=== PATIENT | male | born 1930 | race Caucasian/White ===

== ENCOUNTER 2016-08-05 14:00 | Outpatient (RCR) ==
--- NOTE | 2016-07-27 16:16 | RS.OPPTEV2 ---
Date of Note: 07/26/16 Visit #: 1 Date of Evaluation: 07/26/16 Payer Source: MEDICARE Date of Onset/Injury/Change in Status: 05/09/16 Treatment Diagnosis: Gait abnormality, weakness, decreased functional ability History of Condition/Mechanism of Injury:: Patient diagnosed with Parkinson's disease 3-4 years ago. states he has progressively gotten less mobile. Level of Function: Patient needs assistance with all bed mobility, some transfers, showering/hygiene and getting dressed. Functional Limitations: Sleep, Self Care, ADL's, Reaching, Pushing, Pulling, Lifting, Carrying, Sitting, Standing, Bending, Squatting, Ambulation, Community Access/Integration Current Subjective/complaints:: Patient's states Mr. Patel has gotten progressively weak. She has to help him with bed mobility, some transfers, and most ADL's. States showering has become significantly difficult. She reports that he needs to go to the bathroom several times a night, but because he can't get out of bed by himself, she brings him a urinal. He is able to ambulate independently with a walker in the house and perform basic sit to stand transfers from a seat that is not too low. He has had no recent falls. He reports the right LE feels asleep at times. Reports not being able to move the right LE well. Mr. Patel reports decreased balance with standing and walking. Patient states he has back pain with attempts of bed mobility and some transfers. While sitting, he reports aching into the right hip and anterior thigh. Medical History Medical History Comments:: Parkinson's Disease, Pacemaker, Hernia repair X 2, right hand surgery. Smoking Status: Never smoker Hx Home Medications: Pradaxa, sinemet, zantac, metoprolol Patient's Goals: Patient and spouse's goals are to gain increased mobility and get relief of back and LE pain. Pain Assessment - Pain Description Pain Location: back and legs Pain Description: Aching Current Pain Intensity: does not rate Functional Outcome Measure Tinetti: 10 (03/05=64% impairment) - G Codes & Severity Modifier G Codes & Modifier: Mobility current CL. Mobility goal CJ Source of G Code score: Tinetti Assessment Observation - Observation Inspection: Patient presents to therapy via with assist of his . Posture: Forward Head, Rounded Shoulders, Increased Thoracic Kyphosis, Decreased Lumbar Lordosis Gait - Gait Pattern Gait Comments: Patient ambulatory in the department with a standard walker with CGA of one. Sit to stand and stand to sit transfers with minimal assistance of one. Patient does not place walker flat with all four legs touching the floor. Demonstrates a lack of continuity with steps. Recommended to patient and his that he use a rolling walker to conserve energy, allow for step continuity , and improved safety. His states they have a rollator at home. General Range of Motion: Patient demonstrates rigidity throughout bilateral LE's with ROM. Demonstrates limited hip extension and knee extension bilaterally. Both knees demonstrate to be -15 degrees from full extension. Bilateral ankle DF to neutral. Demonstrates tightness in anterior shoulder joints, exhibiting limited ROM into shoulder horizontal abduction. Muscle Strength: Bilateral hip strength 3+ to 4-/5. Bilateral quads and HS 4/ 5. Ankles 4/5. Trunk strength 3+/5. Sensation - Sensation Comments: Reports some hyposensitivity along the right anterior and lateral thigh. Otherwise, reports sensation is intact. Balance - Sitting Balance Static Sitting Balance: Good (-) Dynamic Sitting Balance: Fair (+) - Standing Balance Static Standing Balance: Fair Dynamic Standing Balance: Fair (-) Coordination - Tests Bilateral Heel to Bernal: Moderate Deviation Toe Tapping: Mild Deviation Additional Comments: Additional Comments: Bed mobility sit to supine with minimal to moderate assistance. Supine to sit with moderate assistance of one. Patient states his back really bothers him when trying to get out of bed. Interventions - Exercise/Activities/Manual Therapy Exercises/Activities: NA Manual Therapy: NA - Charges Total Direct Minutes: 55 mins Total Treatment Time: 55 mins Procedures billed for this date of service:: Eval Medium Assessment Assessment: Mr. Patel presents to therapy with a diagnosis of Parkinson's Disease, Osteoarthritis of the spine, and gait difficulty. He demonstrates marked limitation of spinal and LE mobility due to muscle tightness and progressive postural deviations. He exhibits the need for assistance with mobility for safety and his reports difficulty with all ADL's due to progressed weakness and limited mobility. He presents to be at a high risk for falls per Tinetti Assessment. Mr. Patel also reports discomfort in the back and legs. He demonstrates potential to benefit from exercises and activities to improve muscle flexibility, and also trunk and LE strengthening to improve his functional ability and safety. Patient Education: Education of diagnosis, Body/Joint mechanics, Home Exercise Program, Home Safety, Activity Modification, Education of Plan of Care Rehab Potential: Good Short Term Goals Goal #1: Patient and spouse independent in basic HEP. Goal to be met by: 08/17/16 Goal #2: Bilateral knee extension to -5 degrees. Goal to be met by: 08/17/16 Goal #3: Bilateral hip strength 4/5. Goal to be met by: 08/17/16 Goal #4: Pt to demonstrate good safety ambulating with AAD short distances. Goal to be met by: 08/17/16 [employer] Goals Goal #1: Pt able to perform transfers independently with good safety. Goal to be met by: 09/15/16 Goal #2: Pt to report minimal back and LE pain with bed mobility and transfers. Goal to be met by: 09/15/16 Goal #3: Score on Tinetti Assessment improved to 20/28. Goal to be met by: 09/15/16 Goal #4: Pt able to perform bed mobility with CGA of one at home. Goal to be met by: 09/15/16 Plan - Treatment to be Provided Procedures: Therapeutic Exercises, Therapeutic Activity, Gait Training, Neuromuscular Rehab, Patient Education Modalities: Electrical Stimulation, Hot Packs - Treatment Plan Frequency: 2 X week Duration: 6 weeks ORDER # VISITS AND/OR THROUGH DATE: 09/15/16 - Treatment Code (1) Gait abnormality Comments: R26.9 (2) Rigidity (muscles) Comments: R28.898 (3) Back pain Qualifiers: Back pain location: low back pain Chronicity: unspecified Back pain laterality: unspecified Sciatica presence: unspecified whether sciatica present Qualified Description: Low back pain, unspecified back pain laterality, unspecified chronicity, with sciatica presence unspecified Qualifier Code(s): (M54.5) Low back pain (4) Parkinson disease Comments: G20 (5) Degenerative arthritis of spine Qualifiers: Spinal region: lumbar Spinal osteoarthritis complication: unspecified spinal osteoarthritis Qualified Description: Osteoarthritis of lumbar spine , unspecified spinal osteoarthritis complication status Qualifier Code(s) : (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
--- NOTE | 2016-08-02 16:36 | RS.OPPTDN ---
Subjective Date of Note: 08/02/16 Visit #: 2 Date of Evaluation: 07/26/16 Payer Source: MEDICARE Treatment Diagnosis: Gait abnormality, weakness, decreased functional ability Current Subjective/complaints:: Patient's says he has been having seizures. Reports his MD knows and even though he has had them, they are less while taking the PD meds. She says she is trying to get him to walk more. Pain Assessment - Pain Description Pain Location: back and legs Pain Description: Aching Current Pain Intensity: does not rate - Treatment Modality: Electrical Stim Unattended Parameters/Method Applied: hivolt 4 large pads uncrossed @ 140 pk volts x 20 mins Treatment Area: bilateral lumbar paraspinals Patient Position: Sitting - Heat/Cryotherapy Treatment: Hot Pack Interventions - Exercise/Activities/Manual Therapy Exercises/Activities: Patient receives passive stretching of SKTC, HS, lower trunk rotation, and knee ext bilaterally x 4. Total minutes of Exercise: 16 Manual Therapy: NA - Charges Total Direct Minutes: 16 Total Treatment Time: 36 Procedures billed for this date of service:: hp, estim (un), ex Assessment: Patient demonstrates very tight HS, hip flexors and heel cords. He appeared to rico all well. Needs cues for sit to stand and stand to sit transfers for safety technique. Altered SW higher. Patient Education: Education of diagnosis, Body/Joint mechanics, Home Exercise Program, Home Safety, Activity Modification, Education of Plan of Care Short Term Goals Goal #1: Patient and spouse independent in basic HEP. Goal to be met by: 08/17/16 Progress towards Goal:: Progressing Goal #2: Bilateral knee extension to -5 degrees. Goal to be met by: 08/17/16 Goal #3: Bilateral hip strength 4/5. Goal to be met by: 08/17/16 Goal #4: Pt to demonstrate good safety ambulating with AAD short distances. Goal to be met by: 08/17/16 Clothing Room Supervisor Goals Goal #1: Pt able to perform transfers independently with good safety. Goal to be met by: 09/15/16 Goal #2: Pt to report minimal back and LE pain with bed mobility and transfers. Goal to be met by: 09/15/16 Goal #3: Score on Tinetti Assessment improved to 20/28. Goal to be met by: 09/15/16 Goal #4: Pt able to perform bed mobility with CGA of one at home. Goal to be met by: 09/15/16 Plan PLAN OF CARE EXPIRES ON:: 09/15/16 ORDER # VISITS AND/OR THROUGH DATE: 09/15/16 PLAN: Continue Plan of Care
--- NOTE | 2016-08-05 16:12 | RS.OPPTDN ---
Subjective Date of Note: 08/05/16 Visit #: 3 Date of Evaluation: 07/26/16 Payer Source: MEDICARE Treatment Diagnosis: Gait abnormality, weakness, decreased functional ability Current Subjective/complaints:: Patient says he thinks his last session helped. says that he had walked up and down their ramp today. Pain Assessment - Pain Description Pain Location: back and legs Pain Description: Aching Current Pain Intensity: does not rate - Treatment Modality: Electrical Stim Unattended Parameters/Method Applied: 4 large pads x 20 mins @ 170 pk volts [facility] Treatment Area: lumbar paraspinals Patient Position: Sitting - Heat/Cryotherapy Treatment: Hot Pack (mid to low back in sitting x 20 mins with estim) Interventions - Exercise/Activities/Manual Therapy Exercises/Activities: Patient receives passive stretching of SKTC, HS, lower trunk rotation, and knee ext bilaterally x 4. Patient performs: pillow squeezes , isometric hip flexion/abd, bridging, and marching in supine x 10 reps. Total minutes of Exercise: 20 Manual Therapy: NA - Charges Total Direct Minutes: 20 Total Treatment Time: 40 Procedures billed for this date of service:: hp, estim (un), ex Assessment: Patient admitted slight improvement in back pain following first session. He appears to rico all therex well. Tightness bilaterally with HS and heel cords. Altered SW again related to patient's posture and needed to be higher for comfort. Patient Education: Education of diagnosis, Body/Joint mechanics, Home Exercise Program, Home Safety, Activity Modification, Education of Plan of Care Short Term Goals Goal #1: Patient and spouse independent in basic HEP. Goal to be met by: 08/17/16 Progress towards Goal:: Progressing Goal #2: Bilateral knee extension to -5 degrees. Goal to be met by: 08/17/16 Goal #3: Bilateral hip strength 4/5. Goal to be met by: 08/17/16 Goal #4: Pt to demonstrate good safety ambulating with AAD short distances. Goal to be met by: 08/17/16 Job Press Feeder Goals Goal #1: Pt able to perform transfers independently with good safety. Goal to be met by: 09/15/16 Goal #2: Pt to report minimal back and LE pain with bed mobility and transfers. Goal to be met by: 09/15/16 Goal #3: Score on Tinetti Assessment improved to 20/28. Goal to be met by: 09/15/16 Goal #4: Pt able to perform bed mobility with CGA of one at home. Goal to be met by: 09/15/16 Plan PLAN OF CARE EXPIRES ON:: 09/15/16 ORDER # VISITS AND/OR THROUGH DATE: 09/15/16 PLAN: Progress Exercises
== END 2016-08-06 ==
PROVIDERS: ATTEND Family Medicine
DX: R26.9 Unspecified abnormalities of gait and mobility (principal); G20 Parkinson's disease; M47.9 Spondylosis, unspecified; M19.90 Unspecified osteoarthritis, unspecified site

== ENCOUNTER 2016-09-02 15:00 | Outpatient (RCR) ==
--- NOTE | 2016-08-09 16:07 | RS.OPPTDN ---
Subjective Date of Note: 08/09/16 Visit #: 4 Date of Evaluation: 07/26/16 Payer Source: MEDICARE Treatment Diagnosis: Gait abnormality, weakness, decreased functional ability Current Subjective/complaints:: Patient says he believes his back is a little better. Patient's and son have also commented about how much better he is "getting around." says she did not have to get up during the night the past few nights to help him with toileting. She usually gets up with him using the urinal 6 times per night. Now, she says it was only 3 times. Pain Assessment - Pain Description Pain Location: back and legs Current Pain Intensity: does not rate - Treatment Modality: Electrical Stim Unattended Parameters/Method Applied: hivolt 4 large pads uncrossed @ 185 pk volts x 20 mins bilateral lumbar paraspinals Patient Position: Sitting - Heat/Cryotherapy Treatment: Hot Pack Interventions - Exercise/Activities/Manual Therapy Exercises/Activities: Patient receives passive stretching of SKTC, HS, lower trunk rotation, and knee ext bilaterally x 4. Patient performs: pillow squeezes , isometric hip flexion/abd, bridging, and marching with 1 1/2# each leg in supine 2 x 10 reps. DF with red tband 2/10. Total minutes of Exercise: 25 Manual Therapy: NA - Charges Total Direct Minutes: 25 Total Treatment Time: 45 Procedures billed for this date of service:: hp, estim (un), ex2 Assessment: Patient appears to be responding to treatment as he is having less back pain and rico all increasing therex. I assisted patient and to the waiting room and stayed with him temporarily as he c/o being dizzy. Symptoms resolved and was able to walk to the car using SW. Patient Education: Education of diagnosis, Body/Joint mechanics, Home Exercise Program, Home Safety, Activity Modification, Education of Plan of Care Patient demonstrates compliance with HEP?: Yes Short Term Goals Goal #1: Patient and spouse independent in basic HEP. Goal to be met by: 08/17/16 Progress towards Goal:: Progressing Goal #2: Bilateral knee extension to -5 degrees. Goal to be met by: 08/17/16 Progress towards Goal:: Progressing Goal #3: Bilateral hip strength 4/5. Goal to be met by: 08/17/16 Progress towards Goal:: Progressing Goal #4: Pt to demonstrate good safety ambulating with AAD short distances. Goal to be met by: 08/17/16 Intermediate Goals Goal #1: Pt able to perform transfers independently with good safety. Goal to be met by: 09/15/16 Goal #2: Pt to report minimal back and LE pain with bed mobility and transfers. Goal to be met by: 09/15/16 Goal #3: Score on Tinetti Assessment improved to 20/28. Goal to be met by: 09/15/16 Goal #4: Pt able to perform bed mobility with CGA of one at home. Goal to be met by: 09/15/16 Plan PLAN OF CARE EXPIRES ON:: 09/15/16 ORDER # VISITS AND/OR THROUGH DATE: 09/15/16 PLAN: Progress Exercises
--- NOTE | 2016-08-12 15:49 | RS.OPPTDN ---
Subjective Date of Note: 08/12/16 Visit #: 5 Date of Evaluation: 07/26/16 Payer Source: MEDICARE Treatment Diagnosis: Gait abnormality, weakness, decreased functional ability Current Subjective/complaints:: Patient's says she can definitely tell therapy is helping because she is getting up less with him at night. She says she feels exercises are making an impact on his bladder. He usually has to get up to use his urinal 6+ times per night, but now only 3 times. He says he can stand up from the chair and bed better and says she sees him using better safety techniques with transfers. Pain Assessment - Pain Description Pain Location: back and legs Current Pain Intensity: "not bad" - Treatment Modality: Electrical Stim Unattended Parameters/Method Applied: hivolt 4 large pads @ 190 pk volts x 20 mins to the lumbar paraspinals Patient Position: Sitting - Heat/Cryotherapy Treatment: Hot Pack (mid to low back) Interventions - Exercise/Activities/Manual Therapy Exercises/Activities: Patient receives passive stretching of SKTC, HS, lower trunk rotation, and knee ext bilaterally x 4. Patient performs: pillow squeezes , isometric hip flexion/abd, bridging, and marching with 1 1/2# each leg in supine 2 x 10 reps. DF with red tband 2/10. Total minutes of Exercise: 26 Manual Therapy: NA - Charges Total Direct Minutes: 26 Total Treatment Time: 46 Procedures billed for this date of service:: hp, estim (un), ex2 Assessment: Patient demo improved safety techniques with sit to stand and stand to sit transfers without cues needed. Patient getting up less at night and decreased need to urinate, allowing him to sleep better. Patient's able to witness improvements in several areas. Perry has admitted decreased back pain as well. Patient Education: Education of diagnosis, Body/Joint mechanics, Home Exercise Program, Home Safety, Activity Modification, Education of Plan of Care Patient demonstrates compliance with HEP?: Yes Short Term Goals Goal #1: Patient and spouse independent in basic HEP. Goal to be met by: 08/17/16 Progress towards Goal:: Progressing Goal #2: Bilateral knee extension to -5 degrees. Goal to be met by: 08/17/16 Progress towards Goal:: Progressing Goal #3: Bilateral hip strength 4/5. Goal to be met by: 08/17/16 Progress towards Goal:: Progressing Goal #4: Pt to demonstrate good safety ambulating with AAD short distances. Goal to be met by: 08/17/16 Subsurface Augmentee Operator Goals Goal #1: Pt able to perform transfers independently with good safety. Goal to be met by: 09/15/16 Progress towards goal: Progressing Goal #2: Pt to report minimal back and LE pain with bed mobility and transfers. Goal to be met by: 09/15/16 Progress towards goal: Progressing Goal #3: Score on Tinetti Assessment improved to 20/28. Goal to be met by: 09/15/16 Goal #4: Pt able to perform bed mobility with CGA of one at home. Goal to be met by: 09/15/16 Plan PLAN OF CARE EXPIRES ON:: 09/15/16 ORDER # VISITS AND/OR THROUGH DATE: 09/15/16 PLAN: Progress Exercises
--- NOTE | 2016-08-18 16:22 | RS.OPPTDN ---
Subjective Date of Note: 08/18/16 Visit #: 6 Date of Evaluation: 07/26/16 Payer Source: MEDICARE Treatment Diagnosis: Gait abnormality, weakness, decreased functional ability Current Subjective/complaints:: Patient states he is feeling better. Reporting less back pain and says she can't believe the difference in waking up at night to urinate. She says she believes the exercises are reducing the frequency and is pleased. Pain Assessment - Pain Description Pain Location: back and legs Current Pain Intensity: "not bad" Does not rate - Treatment Modality: Electrical Stim Unattended Parameters/Method Applied: hivolt 4 large pads @ 240 pk volts uncrossed x 20 mins Treatment Area: lumbar paraspinals Patient Position: Sitting - Heat/Cryotherapy Treatment: Hot Pack (with estim) Interventions - Exercise/Activities/Manual Therapy Exercises/Activities: Patient receives passive stretching of SKTC, HS, lower trunk rotation, and knee ext bilaterally x 4. Patient performs: pillow squeezes , isometric hip flexion/abd, bridging, QS, and marching with 1 1/2# each leg in supine 2 x 10 reps. DF with red tband 2/10. Total minutes of Exercise: 26 Manual Therapy: NA - Charges Total Direct Minutes: 26 Total Treatment Time: 46 Procedures billed for this date of service:: hp, estim (un), ex2 Assessment: Patient's is very consistent with safety cues with amb/ transfers, and HEP using tbands. Patient getting up less at night and appears to have slightly more flexibility. Patient Education: Education of diagnosis, Body/Joint mechanics, Home Exercise Program, Home Safety, Activity Modification, Education of Plan of Care Patient demonstrates compliance with HEP?: Yes Short Term Goals Goal #1: Patient and spouse independent in basic HEP. Goal to be met by: 08/17/16 Progress towards Goal:: Progressing Goal #2: Bilateral knee extension to -5 degrees. Goal to be met by: 08/17/16 Progress towards Goal:: Progressing Goal #3: Bilateral hip strength 4/5. Goal to be met by: 08/17/16 Progress towards Goal:: Progressing Goal #4: Pt to demonstrate good safety ambulating with AAD short distances. Goal to be met by: 08/17/16 [employer]agerie Superintendent Goals Goal #1: Pt able to perform transfers independently with good safety. Goal to be met by: 09/15/16 Progress towards goal: Progressing Goal #2: Pt to report minimal back and LE pain with bed mobility and transfers. Goal to be met by: 09/15/16 Progress towards goal: Progressing Goal #3: Score on Tinetti Assessment improved to 20/28. Goal to be met by: 09/15/16 Goal #4: Pt able to perform bed mobility with CGA of one at home. Goal to be met by: 09/15/16 Plan PLAN OF CARE EXPIRES ON:: 09/15/16 ORDER # VISITS AND/OR THROUGH DATE: 09/15/16 PLAN: Progress Exercises
--- NOTE | 2016-08-20 16:26 | RS.OPPTDN ---
Subjective Date of Note: 08/20/16 Visit #: 7 Date of Evaluation: 07/26/16 Payer Source: MEDICARE Treatment Diagnosis: Gait abnormality, weakness, decreased functional ability Current Subjective/complaints:: Patient says his back pain is much better. Reports he barely has it anymore, but when it is present, it is equal to both sides of the lower back (at waistline). Pain Assessment - Pain Description Pain Location: back and legs Current Pain Intensity: "just a little" - Treatment Modality: Electrical Stim Unattended Parameters/Method Applied: hivolt 4 large pads @ 170 pk volts x 20 mins to bilateral lumbar paraspinals uncrossed. Patient Position: Sitting - Heat/Cryotherapy Treatment: Hot Pack Interventions - Exercise/Activities/Manual Therapy Exercises/Activities: Patient receives passive stretching of SKTC, HS, lower trunk rotation, and knee ext bilaterally x 4. Patient performs: pillow squeezes , isometric hip flexion/abd, bridging, QS, and marching with 1 1/2# each leg in supine 2 x 10 reps. SAQ 2 1/2# alternating, DF with red tband 2/10. LAQ and alternate DF. Shoulder shrugs and scap adduction (assisted x 10) Total minutes of Exercise: 26 Manual Therapy: NA - Charges Total Direct Minutes: 26 Total Treatment Time: 46 Procedures billed for this date of service:: hp, estim (un), ex2 Assessment: Patient recalling less pain to the LB and less frequent. Patient appears to ambulate with increased speed, but remains with shuffling and short steps. Patient Education: Education of diagnosis, Body/Joint mechanics, Home Exercise Program, Home Safety, Activity Modification, Education of Plan of Care Patient demonstrates compliance with HEP?: Yes Short Term Goals Goal #1: Patient and spouse independent in basic HEP. Goal to be met by: 08/17/16 Progress towards Goal:: Progressing Goal #2: Bilateral knee extension to -5 degrees. Goal to be met by: 08/17/16 Progress towards Goal:: Progressing Goal #3: Bilateral hip strength 4/5. Goal to be met by: 08/17/16 Progress towards Goal:: Progressing Goal #4: Pt to demonstrate good safety ambulating with AAD short distances. Goal to be met by: 08/17/16 Finish Molder Goals Goal #1: Pt able to perform transfers independently with good safety. Goal to be met by: 09/15/16 Progress towards goal: Progressing Goal #2: Pt to report minimal back and LE pain with bed mobility and transfers. Goal to be met by: 09/15/16 Progress towards goal: Progressing Goal #3: Score on Tinetti Assessment improved to 20/28. Goal to be met by: 09/15/16 Goal #4: Pt able to perform bed mobility with CGA of one at home. Goal to be met by: 09/15/16 Plan PLAN OF CARE EXPIRES ON:: 09/15/16 ORDER # VISITS AND/OR THROUGH DATE: 09/15/16 PLAN: Progress Exercises
--- NOTE | 2016-08-26 15:43 | RS.OPPTDN ---
Subjective Date of Note: 08/23/16 Visit #: 7 Date of Evaluation: 07/26/16 Payer Source: MEDICARE Treatment Diagnosis: Gait abnormality, weakness, decreased functional ability Current Subjective/complaints:: Patient says he is doing better and back pain is low, but is fatigued. Pain Assessment - Pain Description Pain Location: back and legs Current Pain Intensity: "just a little" - Treatment Modality: Electrical Stim Unattended Parameters/Method Applied: 4 large pads @ 220 pk volts x 20 mins Treatment Area: bilateral lumbar paraspinals Patient Position: Sitting - Heat/Cryotherapy Treatment: Hot Pack Interventions - Exercise/Activities/Manual Therapy Exercises/Activities: Patient receives passive stretching of SKTC, HS, lower trunk rotation, and knee ext bilaterally x 4. Patient performs: pillow squeezes , isometric hip flexion/abd, bridging, QS, and marching with 1 1/2# each leg in supine 2 x 10 reps. SAQ 2 1/2# alternating, DF with red tband 2/10. LAQ and alternate DF. Shoulder shrugs and scap adduction (assisted x 10) Total minutes of Exercise: 27 Manual Therapy: NA - Charges Total Direct Minutes: 27 Total Treatment Time: 47 Procedures billed for this date of service:: hp, estim (un), ex2 Patient Education: Education of diagnosis, Body/Joint mechanics, Home Exercise Program, Home Safety, Activity Modification, Education of Plan of Care Patient demonstrates compliance with HEP?: Yes Short Term Goals Goal #1: Patient and spouse independent in basic HEP. Goal to be met by: 08/17/16 Progress towards Goal:: Progressing Goal #2: Bilateral knee extension to -5 degrees. Goal to be met by: 08/17/16 Progress towards Goal:: Progressing Goal #3: Bilateral hip strength 4/5. Goal to be met by: 08/17/16 Progress towards Goal:: Progressing Goal #4: Pt to demonstrate good safety ambulating with AAD short distances. Goal to be met by: 08/17/16 Retirement Goals Goal #1: Pt able to perform transfers independently with good safety. Goal to be met by: 09/15/16 Progress towards goal: Progressing Goal #2: Pt to report minimal back and LE pain with bed mobility and transfers. Goal to be met by: 09/15/16 Progress towards goal: Progressing Goal #3: Score on Tinetti Assessment improved to 20/28. Goal to be met by: 09/15/16 Goal #4: Pt able to perform bed mobility with CGA of one at home. Goal to be met by: 09/15/16 Plan PLAN OF CARE EXPIRES ON:: 09/15/16 ORDER # VISITS AND/OR THROUGH DATE: 09/15/16 PLAN: Progress Exercises
--- NOTE | 2016-08-26 16:29 | RS.OPPTDN ---
Subjective Date of Note: 08/26/16 Visit #: 8 Date of Evaluation: 07/26/16 Payer Source: MEDICARE Treatment Diagnosis: Gait abnormality, weakness, decreased functional ability Current Subjective/complaints:: Patient expresses he's very tired today. says they have had many MD appts this and last week. Pain Assessment - Pain Description Pain Location: back and legs Current Pain Intensity: "just a little" - Treatment Modality: Electrical Stim Unattended Parameters/Method Applied: hivolt 4 large pads @ 180-220 pk volts x 20 mins Treatment Area: bilateral lumbar paraspinals Patient Position: Sitting - Heat/Cryotherapy Treatment: Hot Pack Interventions - Exercise/Activities/Manual Therapy Exercises/Activities: Patient receives passive stretching of SKTC, HS, lower trunk rotation, and knee ext bilaterally x 4. Patient also receives passive hip flexor stretching in sidelying x 2. Less active therex due to patient fatigue. Total minutes of Exercise: 17 Manual Therapy: NA - Charges Total Direct Minutes: 17 Total Treatment Time: 37 Procedures billed for this date of service:: hp, estim (un), ex Assessment: Patient verbalizes fatigue today related to several MD appts this past two weeks. He is able to rico stretches well, but shows very little range with stretch to R hip flexor. Patient is performing HEP consistently and ambulates out of the department with more erect gait and increased speed with SW. Less safety cues needed as he is showing more initiative with transfers. Patient Education: Education of diagnosis, Body/Joint mechanics, Home Exercise Program, Home Safety, Activity Modification, Education of Plan of Care Patient demonstrates compliance with HEP?: Yes Short Term Goals Goal #1: Patient and spouse independent in basic HEP. Goal to be met by: 08/17/16 Progress towards Goal:: Progressing Goal #2: Bilateral knee extension to -5 degrees. Goal to be met by: 08/17/16 Progress towards Goal:: Progressing Goal #3: Bilateral hip strength 4/5. Goal to be met by: 08/17/16 Progress towards Goal:: Progressing Goal #4: Pt to demonstrate good safety ambulating with AAD short distances. Goal to be met by: 08/17/16 Residential Goals Goal #1: Pt able to perform transfers independently with good safety. Goal to be met by: 09/15/16 Progress towards goal: Progressing Goal #2: Pt to report minimal back and LE pain with bed mobility and transfers. Goal to be met by: 09/15/16 Progress towards goal: Progressing Goal #3: Score on Tinetti Assessment improved to 20/28. Goal to be met by: 09/15/16 Goal #4: Pt able to perform bed mobility with CGA of one at home. Goal to be met by: 09/15/16 Plan PLAN OF CARE EXPIRES ON:: 09/15/16 ORDER # VISITS AND/OR THROUGH DATE: 09/15/16 PLAN: Progress Exercises (continue bilateral hip flexor stretching next week)
--- NOTE | 2016-08-31 08:56 | RS.OPPTDN ---
Subjective Date of Note: 08/30/16 Visit #: 9 Date of Evaluation: 07/26/16 Payer Source: MEDICARE Treatment Diagnosis: Gait abnormality, weakness, decreased functional ability Current Subjective/complaints:: Patient pleased with his progress,feels the therapy is helping.His is present and reports that his walking has improved. Pain Assessment - Pain Description Pain Location: back and legs Pain Description: Dull Current Pain Intensity: not rated - Treatment Modality: Electrical Stim Unattended Parameters/Method Applied: 20 mins. high volt to lumbar paraspinals,2 large electrodes @ 190 pv. Patient Position: Sitting - Heat/Cryotherapy Treatment: Hot Pack (concurrent with e-stim) Interventions - Exercise/Activities/Manual Therapy Exercises/Activities: 30 mins. total of trunk rotation in hooklying,passive stretching to hamstrings.AROM of alternating SAQ's,alternating heelslides, alternating hip flexion,3/10 each. Total minutes of Exercise: 30 Manual Therapy: NA Total minutes of Manual Therapy: 0 - Charges Total Direct Minutes: 30 Total Treatment Time: 50 Procedures billed for this date of service:: hp,e-stim,ex 2 Assessment: Patient tolerates exercises well,no increased back pain with AROM today.He has decreased trunk rotation with ambulation noted.He requires occasional cues to place the walker flat on floor while ambulating . Patient Education: Education of diagnosis, Body/Joint mechanics, Home Exercise Program, Home Safety, Activity Modification, Education of Plan of Care Short Term Goals Goal #1: Patient and spouse independent in basic HEP. Goal to be met by: 08/17/16 Progress towards Goal:: Progressing Goal #2: Bilateral knee extension to -5 degrees. Goal to be met by: 08/17/16 Progress towards Goal:: Progressing Goal #3: Bilateral hip strength 4/5. Goal to be met by: 08/17/16 Progress towards Goal:: Progressing Goal #4: Pt to demonstrate good safety ambulating with AAD short distances. Goal to be met by: 08/17/16 Half-Way Goals Goal #1: Pt able to perform transfers independently with good safety. Goal to be met by: 09/15/16 Progress towards goal: Progressing Goal #2: Pt to report minimal back and LE pain with bed mobility and transfers. Goal to be met by: 09/15/16 Progress towards goal: Progressing Goal #3: Score on Tinetti Assessment improved to 20/28. Goal to be met by: 09/15/16 Goal #4: Pt able to perform bed mobility with CGA of one at home. Goal to be met by: 09/15/16 Plan PLAN OF CARE EXPIRES ON:: 09/15/16 ORDER # VISITS AND/OR THROUGH DATE: 09/15/16 PLAN: Continue Plan of Care
--- NOTE | 2016-09-06 15:29 | RS.OPPTDN ---
Subjective Date of Note: 09/02/16 Visit #: 10 Date of Evaluation: 07/26/16 Payer Source: MEDICARE Treatment Diagnosis: Gait abnormality, weakness, decreased functional ability Current Subjective/complaints:: Patient feels the therapy is helping ,was able to mow his lawn. Pain Assessment - Pain Description Pain Location: back and legs Pain Description: Dull Current Pain Intensity: not rated - Treatment Modality: Electrical Stim Unattended Parameters/Method Applied: 20 mins. high volt,2 large electrodes to lumbar paraspinals,@180 pv. Patient Position: Sitting - Heat/Cryotherapy Treatment: Hot Pack (concurrent with e-stim) Interventions - Exercise/Activities/Manual Therapy Exercises/Activities: 40 mins. Tinetti assessment and Oswestry low back assessment ,HEP review. Total minutes of Exercise: 40 Manual Therapy: NA Total minutes of Manual Therapy: 0 - Charges Total Direct Minutes: 40 Total Treatment Time: 60 Procedures billed for this date of service:: hp,e-stim,ex 2 Assessment: Progressing ,steadier sit to stand,improved gait pattern,improved trunk extension,improved awareness of safety and energy conservation.He can continue to benefit from skilled PT as he is highly motivated to improve. Patient Education: Education of diagnosis, Body/Joint mechanics, Home Exercise Program, Home Safety, Activity Modification, Education of Plan of Care Patient demonstrates compliance with HEP?: Yes Short Term Goals Goal #1: Patient and spouse independent in basic HEP. Goal to be met by: 08/17/16 Progress towards Goal:: Progressing Goal #2: Bilateral knee extension to -5 degrees. Goal to be met by: 08/17/16 Progress towards Goal:: Progressing Goal #3: Bilateral hip strength 4/5. Goal to be met by: 08/17/16 Progress towards Goal:: Progressing Goal #4: Pt to demonstrate good safety ambulating with AAD short distances. Goal to be met by: 08/17/16 Skilled Nursing Goals Goal #1: Pt able to perform transfers independently with good safety. Goal to be met by: 09/15/16 Progress towards goal: Partially Met Goal #2: Pt to report minimal back and LE pain with bed mobility and transfers. Goal to be met by: 09/15/16 Progress towards goal: Progressing Goal #3: Score on Tinetti Assessment improved to . Goal to be met by: 09/15/16 () Progress towards goal: Met Goal #4: Pt able to perform bed mobility with CGA of one at home. Goal to be met by: 09/15/16 Progress towards goal: Progressing Plan PLAN OF CARE EXPIRES ON:: 09/15/16 ORDER # VISITS AND/OR THROUGH DATE: 09/15/16 PLAN: Continue Plan of Care
--- NOTE | 2016-09-22 15:56 | RS.PTSUM ---
Progress Note/Summary Date of Note: 09/03/16 Date of Evaluation: 07/26/16 Number of Visits: 10 Reporting Period for this Progress Note: 08/30/16 through 07/26/16 Current Complaints/Gains: Patient and his are pleased with his progress. States he is walking better and he feels stronger. Objective Measurements/Presentation: Patient demonstrates more erect posture with ambulation and equal step length. He exhibits improved safety awareness and also has gained muscle strength. G Codes: Mobility current CJ. Mobility goal CJ Source of G Code Score: Tinetti Assessment - Short Term Goals Goal #1: Patient and spouse independent in basic HEP. Goal to be met by: 09/06/16 Progress towards Goal:: Progressing Goal #2: Bilateral knee extension to -5 degrees. Goal to be met by: 09/06/16 Progress towards Goal:: Progressing Goal #3: Bilateral hip strength 4/5. Goal to be met by: 09/06/16 Progress towards Goal:: Progressing Goal #4: Pt to demonstrate good safety ambulating with AAD short distances. Goal to be met by: 09/06/16 Progress towards Goal:: Progressing - [employer] Goals Goal #1: Pt able to perform transfers independently with good safety. Goal to be met by: 09/15/16 Progress towards goal: Partially Met Goal #2: Pt to report minimal back and LE pain with bed mobility and transfers. Goal to be met by: 10/06/16 Progress towards goal: Progressing Goal #3: Score on Tinetti Assessment improved to . Goal to be met by: 09/15/16 () Progress towards goal: Met Goal #4: Pt able to perform bed mobility with CGA of one at home. Goal to be met by: 10/06/16 - Assessment Assessment of Improvement/Progress: Mr. Patel has made progress with improved safety and decreased risk for falls per Tinetti Assessment. He demonstrates the potential for increased safety with mobility and increased independence with further therapy of strengthening . - Plan Plan: Continue Plan of Care PLAN OF CARE EXPIRES ON:: 10/06/16 ORDER # VISITS AND/OR THROUGH DATE: 10/06/16
== END 2016-09-05 ==
PROVIDERS: ATTEND Family Medicine
DX: G20 Parkinson's disease (principal); M47.9 Spondylosis, unspecified; M19.90 Unspecified osteoarthritis, unspecified site; R26.9 Unspecified abnormalities of gait and mobility

== ENCOUNTER 2016-09-23 15:00 | Outpatient (RCR) ==
--- NOTE | 2016-09-06 16:38 | RS.OPPTDN ---
Subjective Date of Note: 09/06/16 Visit #: 11 Date of Evaluation: 07/26/16 Payer Source: MEDICARE Treatment Diagnosis: Gait abnormality, weakness, decreased functional ability Current Subjective/complaints:: Patient says he was able to mow on his ride mower last week without difficulty. He says that his back felt better afterwards. His says he only awakened twice last week and 3 times over the weekend to use the bathroom. Pain Assessment - Pain Description Pain Location: back and legs Current Pain Intensity: not rated - Treatment Modality: Electrical Stim Unattended Parameters/Method Applied: hivolt 4 large pads uncrossed @ 205 pk volts x 20 mins Treatment Area: bilateral lumbar paraspinals Patient Position: Sitting - Heat/Cryotherapy Treatment: Hot Pack Interventions - Exercise/Activities/Manual Therapy Exercises/Activities: Patient continued to receive passive stretching of SKTC, HS, Piriformis, and lower trunk rotation bilaterally x 3. Patient performs: SAQ 2 1/2#ea, DF and hooklying hip abd with green tband, alternate LE lift with 2 1/2# ea. Bridging x 3. All others 2x10. Received passive hip flexion stretching bilaterally x 3. 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 Slight improvement with flexibility during stretches. Patient Education: Education of diagnosis, Body/Joint mechanics, Home Exercise Program, Home Safety, Activity Modification, Education of Plan of Care Patient demonstrates compliance with HEP?: Yes Short Term Goals Goal #1: Patient and spouse independent in basic HEP. Goal to be met by: 08/17/16 Progress towards Goal:: Met Goal #2: Bilateral knee extension to -5 degrees. Goal to be met by: 08/17/16 Progress towards Goal:: Progressing Goal #3: Bilateral hip strength 4/5. Goal to be met by: 08/17/16 Progress towards Goal:: Met Goal #4: Pt to demonstrate good safety ambulating with AAD short distances. Goal to be met by: 08/17/16 Progress towards Goal:: Progressing Security Advisor Goals Goal #1: Pt able to perform transfers independently with good safety. Goal to be met by: 09/15/16 Progress towards goal: Partially Met Goal #2: Pt to report minimal back and LE pain with bed mobility and transfers. Goal to be met by: 09/15/16 Progress towards goal: Progressing Goal #3: Score on Tinetti Assessment improved to . Goal to be met by: 09/15/16 () Progress towards goal: Met Goal #4: Pt able to perform bed mobility with CGA of one at home. Goal to be met by: 09/15/16 Plan PLAN OF CARE EXPIRES ON:: 09/15/16 ORDER # VISITS AND/OR THROUGH DATE: 09/15/16 PLAN: Progress Exercises
--- NOTE | 2016-09-09 16:40 | RS.OPPTDN ---
Subjective Date of Note: 09/09/16 Visit #: 13 Date of Evaluation: 07/26/16 Payer Source: MEDICARE Treatment Diagnosis: Gait abnormality, weakness, decreased functional ability Current Subjective/complaints:: Patient says his back pain is elevated due to the weather, but has been only awakening 3 times per night for the past 4 days. He says he was able to mow again yesterday with no c/o's. His says she is very pleased at this point, but would like to continue for about 2 more weeks. Pain Assessment - Pain Description Pain Location: back and legs Current Pain Intensity: more today related to the weather - Treatment Modality: Electrical Stim Unattended Parameters/Method Applied: hivolt 4 large pads to the mid to low back @ 205 pk volts x 20 mins Patient Position: Sitting - Heat/Cryotherapy Treatment: Hot Pack (mid to low back with estim) Interventions - Exercise/Activities/Manual Therapy Exercises/Activities: Patient continued to receive passive stretching of SKTC, HS, Piriformis, and lower trunk rotation bilaterally x 3. Patient performs: SAQ progressed to 3#ea, DF and hooklying hip abd with green tband, alternate LE lift with 2 1/2# ea. Bridging 2x5. All others 2x10. Received passive hip flexion stretching bilaterally x 3. Sitting: shoulder shrugs and scap adduction. VC's with gait for more erect posture and to avoid looking down at feet. Total minutes of Exercise: 26 Manual Therapy: NA - Charges Total Direct Minutes: 26 Total Treatment Time: 46 Procedures billed for this date of service:: hp, estim (un), ex2 Assessment: Elevated back soreness today related to the damp weather. Patient has now been able to mow 3 times without c/o's. He also has consistently awakened less to use the bathroom the past 4 days. Patient to continue x 2-3 more weeks with new order. Patient Education: Education of diagnosis, Body/Joint mechanics, Home Exercise Program, Home Safety, Activity Modification, Education of Plan of Care Patient demonstrates compliance with HEP?: Yes Short Term Goals Goal #1: Patient and spouse independent in basic HEP. Goal to be met by: 08/17/16 Progress towards Goal:: Met Goal #2: Bilateral knee extension to -5 degrees. Goal to be met by: 08/17/16 Progress towards Goal:: Progressing Goal #3: Bilateral hip strength /5. Goal to be met by: 08/17/16 Progress towards Goal:: Met Goal #4: Pt to demonstrate good safety ambulating with AAD short distances. Goal to be met by: 08/17/16 Progress towards Goal:: Met Balance Engineer Goals Goal #1: Pt able to perform transfers independently with good safety. Goal to be met by: 09/15/16 Progress towards goal: Partially Met Goal #2: Pt to report minimal back and LE pain with bed mobility and transfers. Goal to be met by: 09/15/16 Progress towards goal: Progressing Goal #3: Score on Tinetti Assessment improved to . Goal to be met by: 09/15/16 () Progress towards goal: Met Goal #4: Pt able to perform bed mobility with CGA of one at home. Goal to be met by: 09/15/16 Plan PLAN OF CARE EXPIRES ON:: 09/15/16 ORDER # VISITS AND/OR THROUGH DATE: 09/15/16 PLAN: Progress Exercises (continue x 2-3 more weeks)
--- NOTE | 2016-09-13 16:42 | RS.OPPTDN ---
Subjective Date of Note: 09/13/16 Visit #: 14 Date of Evaluation: 07/26/16 Payer Source: MEDICARE Treatment Diagnosis: Gait abnormality, weakness, decreased functional ability Current Subjective/complaints:: Patient's says Mr. Patel mowed Tuesday and was pretty worn out. She says he is able to get on/off his mower much better than prior to PT. Says he has been getting up only 2 times per night now. Pain Assessment - Pain Description Pain Location: back and legs Current Pain Intensity: more today related to the weather - Treatment Modality: Electrical Stim Unattended Parameters/Method Applied: hivolt 4 large pads @ 215-220 pk volts uncrossed x 20 mins bilateral lumbar paraspinals Patient Position: Sitting - Heat/Cryotherapy Treatment: Hot Pack Interventions - Exercise/Activities/Manual Therapy Exercises/Activities: Patient continued to receive passive stretching of Heel cords HS, Piriformis, and lower trunk rotation bilaterally x 3. Bilateral Hip flexor stretching x 3. Patient performs: SAQ progressed to 3#ea, DF and hooklying hip abd with green tband, Bridging 2x5. All others 2x10. Practiced bed mobs supine to sit, sidelying and sit to supine. Sitting: shoulder shrugs and scap adduction. VC's with gait for more erect posture and to avoid looking down at feet. Total minutes of Exercise: 40 Manual Therapy: NA - Charges Total Direct Minutes: 40 Total Treatment Time: 60 Procedures billed for this date of service:: hp, estim (un), ex3 Assessment: Patient demo progress with awakening to only 2 times per night now. Ambulating with larger steps and increased speed upon departing PT. Verbal reports of decreased back pain and improved ability to ambulate out of our department. Patient Education: Education of diagnosis, Body/Joint mechanics, Home Exercise Program, Home Safety, Activity Modification, Education of Plan of Care Patient demonstrates compliance with HEP?: Yes Short Term Goals Goal #1: Patient and spouse independent in basic HEP. Goal to be met by: 08/17/16 Progress towards Goal:: Met Goal #2: Bilateral knee extension to -5 degrees. Goal to be met by: 08/17/16 Progress towards Goal:: Progressing Goal #3: Bilateral hip strength 4/5. Goal to be met by: 08/17/16 Progress towards Goal:: Met Goal #4: Pt to demonstrate good safety ambulating with AAD short distances. Goal to be met by: 08/17/16 Progress towards Goal:: Met Director Physical Therapy Goals Goal #1: Pt able to perform transfers independently with good safety. Goal to be met by: 09/15/16 Progress towards goal: Partially Met Goal #2: Pt to report minimal back and LE pain with bed mobility and transfers. Goal to be met by: 09/15/16 Progress towards goal: Progressing Goal #3: Score on Tinetti Assessment improved to . Goal to be met by: 09/15/16 () Progress towards goal: Met Goal #4: Pt able to perform bed mobility with CGA of one at home. Goal to be met by: 09/15/16 Plan PLAN OF CARE EXPIRES ON:: 09/30/16 ORDER # VISITS AND/OR THROUGH DATE: 09/30/16, with new order x 2-3 times per week PLAN: Progress Exercises
--- NOTE | 2016-09-15 16:57 | RS.OPPTDN ---
Subjective Date of Note: 09/15/16 Visit #: 15 Date of Evaluation: 07/26/16 Payer Source: MEDICARE Treatment Diagnosis: Gait abnormality, weakness, decreased functional ability Current Subjective/complaints:: Patient says his back continues to feel better, but has been tired this week due to several MD appts. Pain Assessment - Pain Description Pain Location: back and legs Current Pain Intensity: more today related to the weather - Treatment Modality: Electrical Stim Unattended Parameters/Method Applied: bilateral Lumbar paraspinals and lower thoracic @ 195 pk volts 4 large pads Patient Position: Sitting - Heat/Cryotherapy Treatment: Hot Pack Interventions - Exercise/Activities/Manual Therapy Exercises/Activities: Patient continued to receive passive stretching of Heel cords HS, Piriformis, and lower trunk rotation bilaterally x 3. Bilateral Hip flexor stretching x 3. Patient performs: SAQ progressed to 3#ea, DF and hooklying hip abd with green tband, Bridging 2x5. All others 2x10. Sitting : shoulder shrugs and scap adduction. VC's with gait for more erect posture and to avoid looking down at feet. Total minutes of Exercise: 30 Manual Therapy: NA - Charges Total Direct Minutes: 30 Total Treatment Time: 50 Procedures billed for this date of service:: hp, estim (un), ex2 Assessment: Patient progressing with decreased back pain and improved flexibility and demo ~-5 degrees of knee ext bilaterally. Patient more fatigued today due to several MD visits. Patient Education: Education of diagnosis, Body/Joint mechanics, Home Exercise Program, Home Safety, Activity Modification, Education of Plan of Care Patient demonstrates compliance with HEP?: Yes Short Term Goals Goal #1: Patient and spouse independent in basic HEP. Goal to be met by: 08/17/16 Progress towards Goal:: Met Goal #2: Bilateral knee extension to -5 degrees. Goal to be met by: 08/17/16 Progress towards Goal:: Met Goal #3: Bilateral hip strength 4/5. Goal to be met by: 08/17/16 Progress towards Goal:: Met Goal #4: Pt to demonstrate good safety ambulating with AAD short distances. Goal to be met by: 08/17/16 Progress towards Goal:: Met Comfort Station Supervisor Goals Goal #1: Pt able to perform transfers independently with good safety. Goal to be met by: 09/15/16 Progress towards goal: Partially Met Goal #2: Pt to report minimal back and LE pain with bed mobility and transfers. Goal to be met by: 09/15/16 Progress towards goal: Progressing Goal #3: Score on Tinetti Assessment improved to . Goal to be met by: 09/15/16 () Progress towards goal: Met Goal #4: Pt able to perform bed mobility with CGA of one at home. Goal to be met by: 09/15/16 Plan PLAN OF CARE EXPIRES ON:: 09/30/16 ORDER # VISITS AND/OR THROUGH DATE: 09/30/16, with new order x 2-3 times per week PLAN: Progress Exercises (continue x 1 more week)
--- NOTE | 2016-09-21 11:00 | RS.OPPTDN ---
Subjective Date of Note: 09/20/16 Visit #: 16 Date of Evaluation: 07/26/16 Payer Source: MEDICARE Treatment Diagnosis: Gait abnormality, weakness, decreased functional ability Current Subjective/complaints:: Patient's says he had consistently been getting up 2 times in the night, but had a "bad" night last night and was back up to 6. He says he has been returning to mowing his small yard in town and [place]. He says he no longer needs as much help getting on/ off of the mower. Pain Assessment - Pain Description Pain Location: back and legs Current Pain Intensity: "very little" - Treatment Modality: Electrical Stim Unattended Parameters/Method Applied: hivolt 4 large pads @ 215 pk volts x 20 mins to bilateral lumbar paraspinals vertically. Patient Position: Sitting - Heat/Cryotherapy Treatment: Hot Pack Interventions - Exercise/Activities/Manual Therapy Exercises/Activities: Patient continued to receive passive stretching of Heel cords HS, Piriformis, and lower trunk rotation bilaterally x 3. Bilateral Hip flexor stretching x 3. Stretching for knee extension bilaterally. Patient performs: SAQ progressed to 3#ea, DF and hooklying hip abd with green tband, Bridging 2x5, QS 2/10. All others 2x10. Sitting: shoulder shrugs and scap adduction. VC's with gait for more erect posture and to avoid looking down at feet. Total minutes of Exercise: 35 Manual Therapy: NA - Charges Total Direct Minutes: 35 Total Treatment Time: 55 Procedures billed for this date of service:: hp, estim (un), ex2 Assessment: Patient has been progressing quite well with sleeping nearly through the night only awakening twice for about 5 days consecutively with the exception of last night. He is able to return to mowing consistently without pain afterwards. He has one available appt and should do well with performing some HEP after D/c. Patient Education: Education of diagnosis, Body/Joint mechanics, Home Exercise Program, Home Safety, Activity Modification, Education of Plan of Care Patient demonstrates compliance with HEP?: Yes Short Term Goals Goal #1: Patient and spouse independent in basic HEP. Goal to be met by: 08/17/16 Progress towards Goal:: Met Goal #2: Bilateral knee extension to -5 degrees. Goal to be met by: 08/17/16 Progress towards Goal:: Met Goal #3: Bilateral hip strength 4/5. Goal to be met by: 08/17/16 Progress towards Goal:: Met Goal #4: Pt to demonstrate good safety ambulating with AAD short distances. Goal to be met by: 08/17/16 Progress towards Goal:: Met [employer] Goals Goal #1: Pt able to perform transfers independently with good safety. Goal to be met by: 09/15/16 Progress towards goal: Partially Met Goal #2: Pt to report minimal back and LE pain with bed mobility and transfers. Goal to be met by: 09/15/16 Progress towards goal: Progressing Goal #3: Score on Tinetti Assessment improved to 20. Goal to be met by: 09/15/16 () Progress towards goal: Met Goal #4: Pt able to perform bed mobility with CGA of one at home. Goal to be met by: 09/15/16 Plan PLAN OF CARE EXPIRES ON:: 09/30/16 ORDER # VISITS AND/OR THROUGH DATE: 09/30/16, with new order x 2-3 times per week PLAN: Progress Exercises (continue x 1 more session per order)
--- NOTE | 2016-09-24 09:09 | RS.OPPTDN ---
Subjective Date of Note: 09/23/16 Visit #: 17 Date of Evaluation: 07/26/16 Payer Source: MEDICARE Treatment Diagnosis: Gait abnormality, weakness, decreased functional ability Current Subjective/complaints:: Patient admits being very pleased with therapy as today is his final visit on his continuation order. says he getting up at night for use of urinal averaging 2-3 times per night. She says she is very happy about this because initially, it was up to 8 times. He has mowed twice this week for 1-3 hours with breaks (ride-mow). He recalls no problems with mowing, actually feeling less back pain and more mobility afterwards. Pain Assessment - Pain Description Pain Location: back and legs Current Pain Intensity: "very little" - Treatment Modality: Electrical Stim Unattended Parameters/Method Applied: 4 large pads hivolt vertically controlling one side from the other @ 205 pk volts x 20 mins Treatment Area: lumbar paraspinals and lower thoracic Patient Position: Sitting Interventions - Exercise/Activities/Manual Therapy Exercises/Activities: Patient continued to receive passive stretching of Heel cords HS, Piriformis, and lower trunk rotation bilaterally x 3. Bilateral Hip flexor stretching x 3. Stretching for knee extension bilaterally. Patient performs: QS, SAQ progressed to 3#ea, DF and hooklying hip abd with green tband , Bridging 2x5, QS 2/10. All others 2x10. Reassessment for Tinetti's and LBP ([place]). Total minutes of Exercise: 30 Manual Therapy: NA - Objective Findings Observations,measurements,etc.: Tinetti's . [id number] - Charges Total Direct Minutes: 30 Total Treatment Time: 50 Procedures billed for this date of service:: estim (un), ex2 Assessment: Improvement with Tinetti's and LBP Scale from 10th visit and eval. Patient and shown HEP and given green tband for DF. Patient has met eval goal at this time and should benefit from continuing HEP and is very attentive and proactive with giving cues for posture/ambulation/safety with transfers. Patient Education: Education of diagnosis, Body/Joint mechanics, Home Exercise Program, Home Safety, Activity Modification, Education of Plan of Care Patient demonstrates compliance with HEP?: Yes Short Term Goals Goal #1: Patient and spouse independent in basic HEP. Goal to be met by: 08/17/16 Progress towards Goal:: Met Goal #2: Bilateral knee extension to -5 degrees. Goal to be met by: 08/17/16 Progress towards Goal:: Met Goal #3: Bilateral hip strength 4/5. Goal to be met by: 08/17/16 Progress towards Goal:: Met Goal #4: Pt to demonstrate good safety ambulating with AAD short distances. Goal to be met by: 08/17/16 Progress towards Goal:: Met [place] Goals Goal #1: Pt able to perform transfers independently with good safety. Goal to be met by: 09/15/16 Progress towards goal: Met Goal #2: Pt to report minimal back and LE pain with bed mobility and transfers. Goal to be met by: 09/15/16 Progress towards goal: Met Goal #3: Score on Tinetti Assessment improved to 20/28. Goal to be met by: 09/15/16 () Progress towards goal: Met Goal #4: Pt able to perform bed mobility with CGA of one at home. Goal to be met by: 09/15/16 Progress towards goal: Met ( has ordered bed rail to assist with patient being more active with bed mobs) Plan PLAN OF CARE EXPIRES ON:: 09/30/16 ORDER # VISITS AND/OR THROUGH DATE: 09/30/16, with new order x 2-3 times per week PLAN: Plan for Discharge (bed rail ordered for improved [place] with bed mobs, advanced HEP, VC's with transfers and gait)
--- NOTE | 2016-10-19 15:00 | RS.OPPTDC ---
Date of Discharge: 09/23/16 Date of Evaluation: 07/26/16 Number of Visits: 17 Treatment Diagnosis: Gait abnormality, weakness, decreased functional ability Current Complaints/Gains: Pt and report improvement with back pain, ambulation, and function. States he is now able to mow about twice a week. He is attentive to cues from his on safety, transfers, and HEP as she was instructed. Pain Assessment - Pain Description Pain Location: back and legs Current Pain Intensity: "very little" Functional Outcome Measure Tinetti: 22 (22/28=21.5% impairment) - G Codes & Severity Modifier G Codes & Modifier: Mob goal CJ. MOb D/C CJ Source of G Code score: Tinetti Assessment Gait - Gait Pattern Gait Comments: Continues to ambulate with flexed forward posture, with decreased bilateral hip and knee flexion. Interventions - Exercise/Activities/Manual Therapy Exercises/Activities: NA Manual Therapy: NA - Objective Findings Observations,measurements,etc.: Patient demonstrates improved safety with transfers and bed mobility. Demonstrates more independence with supine to sit in the department. He demonstrates improved flexibility with hip flexors and knee extension. - Charges Total Direct Minutes: NA Total Treatment Time: NA Procedures billed for this date of service:: NA Assessment Assessment: Mr. Patel demonstrates good progress with all goals. He gained increased ROM and flexibility in his LE's. Demonstrates improved safety with all mobility and increased independence with supine to sit. Score on Tinetti Assessment improved, demonstrating less risk for falls compared to his initial evaluation. Patient and demonstrate understanding to continue exercises at home. Short Term Goals Goal #1: Patient and spouse independent in basic HEP. Goal to be met by: 08/17/16 Progress towards Goal:: Met Goal #2: Bilateral knee extension to -5 degrees. Goal to be met by: 08/17/16 Progress towards Goal:: Met Goal #3: Bilateral hip strength 4/5. Goal to be met by: 08/17/16 Progress towards Goal:: Met Goal #4: Pt to demonstrate good safety ambulating with AAD short distances. Goal to be met by: 08/17/16 Progress towards Goal:: Met [facility] Goals Goal #1: Pt able to perform transfers independently with good safety. Goal to be met by: 09/15/16 Progress towards goal: Met Goal #2: Pt to report minimal back and LE pain with bed mobility and transfers. Goal to be met by: 09/15/16 Progress towards goal: Met Goal #3: Score on Tinetti Assessment improved to . Goal to be met by: 09/15/16 () Progress towards goal: Met Goal #4: Pt able to perform bed mobility with CGA of one at home. Goal to be met by: 09/15/16 Progress towards goal: Met ( has ordered bed rail to assist with patient being more active with bed mobs) Plan Reason for Discharge:: All Goals Met
== END 2016-10-06 ==
PROVIDERS: ATTEND Family Medicine
DX: R26.9 Unspecified abnormalities of gait and mobility (principal); M79.604 Pain in right leg; G47.61 Periodic limb movement disorder

== ENCOUNTER 2017-01-11 13:01 | Outpatient (CLI) ==
--- NOTE | 2017-01-11 14:08 | US ---
Exam: Tapia-scale and color Doppler ultrasonographic evaluation of the carotid arteries. Comparison: None available. Reason for exam: Bruit disease. FINDINGS: There is a moderate amount of plaques seen in the proximal right internal carotid artery at the level of the bulb. The right external carotid artery measures 110 / 0 cm/sec. The right common carotid artery measures 80 / 10 cm/sec. The right internal carotid artery peak systolic velocity measures 70 cm/sec. The right internal carotid artery/CCA PSV ratio measures 0.8. The right internal carotid artery end-diastolic velocity measures 20 cm/sec. There is normal antegrade right vertebral artery flow. There is a small to moderate amount of plaque seen in the left internal carotid artery at the level of the bulb. The left external carotid artery measures 90/0 cm/sec. The left common carotid artery measures 70 / 10 cm/sec. The left internal carotid artery peak systolic velocity measures 60 cm/sec. The left internal carotid artery/CCA PSV ratio measures 0.8. The left internal carotid artery end-diastolic velocity measures 20 cm/sec. There is normal antegrade left vertebral artery flow. Impression: 1. No ultrasonographic evidence of significant stenosis is seen based on peak systolic velocities i n either the right or left internal carotid arteries. 2. Normal antegrade flow is seen in both the left and right vertebral arteries.
== END 2017-01-11 13:02 | disposition home or self-care (01) ==
LOC: RAD 13:01
PROVIDERS: ATTEND Family Medicine
DX: R09.89 Other specified symptoms and signs involving the circulatory and respiratory systems (principal)

== ENCOUNTER 2018-07-31 12:04 | Outpatient (CLI) ==
[2018-07-31 12:31] VITALS: BP 118/64; TEMP 98.5
[2018-07-31] MEDS ORDERED: PROLIA SUBCUT STA (12:33)
== END 2018-07-31 12:05 | disposition home or self-care (01) ==
LOC: OPMED 12:04
PROVIDERS: ATTEND Family Medicine
DX: M81.0 Age-related osteoporosis without current pathological fracture (principal)
CPT/HCPCS: 96372